=== PATIENT | female | born 1940 | race Two or more races ===

== ENCOUNTER 2020-04-26 16:36 | Inpatient (IN) | payer MEDICARE, OTHER ==
[~2020-04-26] VITALS: Ht 147.3 cm; Wt 42.3 kg
[~2020-04-26 16:36] MED LIST: RISP0.5T20 PO; VENL75CA62 PO
[2020-04-26] MEDS ORDERED: ACETAMINOPHEN 650 MG/SUPP.RECT RC ONE ×2 (17:00→17:19)
[2020-04-26] MEDS ORDERED: AZTREONAM 2 G in IV NS 0.9% 100 ML IV ONE (17:00)
[2020-04-26] MEDS ORDERED: VANCOMYCIN 1 GM in IV D5W 250 ML IV ONE (17:00)
[2020-04-26] MEDS ORDERED: NA P133E RC (17:14)
[2020-04-26] MEDS ORDERED: ACET325T53 PO (17:14)
[2020-04-26] MEDS ORDERED: MULT-447 PO (17:14)
[2020-04-26] MEDS ORDERED: BACL10TA PO (17:14)
[2020-04-26] MEDS ORDERED: SELE200T20 PO (17:14)
[2020-04-26] MEDS ORDERED: ESCI5TAB PO (17:14)
[2020-04-26] MEDS ORDERED: ERGO500014 PEG (17:14)
[2020-04-26] MEDS ORDERED: SENN-18 PO (17:14)
[2020-04-26] MEDS ORDERED: DEXT1CAP3 PO (17:14)
[2020-04-26] MEDS ORDERED: MEMA10TA PO (17:14)
[2020-04-26] MEDS ORDERED: DOCU-141 PO (17:14)
[2020-04-26] MEDS ORDERED: HYDR-4384 PO (17:14)
[2020-04-26] MEDS ORDERED: MAGN400O6 PO (17:14)
[2020-04-26] MEDS ORDERED: BISA10SU61 RC (17:14)
[2020-04-26] MEDS ORDERED: AMIN887L PO (17:14)
--- NOTE | 2020-04-26 17:20 | NUR ---
SUNDAY FROM [facility] TO ER BED 5. AWAKE BUT CONFUSED. NON VERBAL. BROUGHT IN FOR DESTURATION REPORTED @ 80% DESPITE HAVING O2 @ 15LPM VIA NON REBREATHER MASK AND TACHYCARDIA REPORTED AT 151. UPON ARRIVAL, PT WAS NOTED WITH O2 SAT @ 88% ON RA. PLACED ON 2 LPM VIA NC SATTING @ 97%. PT IS ON [id number] WITH HR IN THE 140s. RECTAL TEMP NOTED @ 103.2 MD WAS AT THE BEDSIDE FOR EVAL. ORDERS RECEIVED NOTED AND CARRIED OUT. IV LINE ALREADY IN PLACED ON LFA 22F. IV LINE ESTABLISHED ON LFA W/ 20G, BLOOD DRAWN AND GIVEN TO PARALEGAL SUPERVISOR AT BEDSIDE.PT ON [id number]. EKG DONE. URINE COLLECTED VIA IN & OUT, WITH STRICT STERILE TECHNIQUE.
[2020-04-26 17:27] LABS: APPEARANCE,URINE Clear (CLEAR); BILIRUBIN,URINE SMALL (NEGATIVE); BLOOD, URINE Trace-intact Ery/uL (NEGATIVE); COLOR,URINE Yellow (YELLOW); KETONES,URINE Negative (NEGATIVE); LEUKOCYTE ESTERASE ,URINE Negative (NEGATIVE); NITRITE, URINE Negative (NEGATIVE); PH,URINE 5.5 (5.0-8.0); PROTEIN,URINE Trace mg/dl (NEGATIVE); UGLUCOSE Negative (NEGATIVE); UROBILINOGEN,URINE 0.2 EU/dL (0.2)
[2020-04-26 17:29] LABS: BASOPHILS # (AUTO) 0.1 /CMM (0.0-0.2); BASOPHILS % (AUTO) 0.5 % (0.0-2.0); HEMATOCRIT 48 % (33-45); HEMOGLOBIN 15.4 g/dL (11.5-14.8); LYMPHOCYTES # (AUTO) 0.9 /CMM (0.8-4.8); LYMPHOCYTES % (AUTO) 8.5 % (20.0-44.0); MEAN CORPUSCULAR HGB CONC 32 g/dl (31.0-36.0); MEAN CORPUSCULAR VOLUME 93 fL (82-100); MONOCYTES # (AUTO) 0.7 /CMM (0.1-1.30); MONOCYTES % (AUTO) 6.6 % (2.0-12.0); NEUTROPHILS # (AUTO) 9.4 /CMM (1.8-8.9); NEUTROPHILS % (AUTO) 84.4 % (43.0-81.0); PLATELET COUNT (AUTO) 173 /CMM (150-450); RED BLOOD CELL COUNT(AUTO) 5.14 MIL/uL (4.0-5.2); WHITE BLOOD COUNT (AUTO) 11.2 K/uL (4.3-11.0)
--- NOTE | 2020-04-26 17:33 | NUR ---
MOVE SHEET SUBMITTED AND CALLED FOR TELE BED.
[2020-04-26 17:37] LABS: BACTERIA,URINE Rare /HPF (None Seen); SQUAMOUS EPITHELIAL CELL,UR Few /HPF (None Seen); WBC,URINE NONE SEEN /HPF (0-3)
[2020-04-26 17:55] LABS: ALANINE AMINOTRANSFERASE 75 U/L (12-78); ALBUMIN 2.7 g/dL (3.4-5.0); ALKALINE PHOSPHATASE 110 U/L (46-116); ASPARTATE AMINOTRANSFERASE 58 U/L (15-37); B-TYPE NATRIURETIC PEPTIDE 747 PG/ML (0-125); BILIRUBIN,TOTAL 0.5 mg/dL (0.2-1.0); CALCIUM, SERUM 8.2 mg/dL (8.5-10.1); CARBON DIOXIDE 26 mmol/L (21-32); CHLORIDE 120 mmol/L (98-107); CREATININE 1.3 mg/dL (0.6-1.3); GLUCOSE 158 mg/dL (74-106); POTASSIUM 3.5 mmol/L (3.5-5.1); TOTAL PROTEIN, SERUM 7.7 g/dL (6.4-8.2); UREA NITROGEN, BLOOD 57 mg/dL (7-18)
[2020-04-26] MEDS ORDERED: VANCOMYCIN 1 GM VIAL ONE (17:55)
[2020-04-26 17:57] LABS: SODIUM SERUM 158 mmol/L (136-145)
[2020-04-26] MEDS ORDERED: IV NS 0.9% 500 ML BAG IV ONE ×2 (18:00→21:30)
[2020-04-26] MEDS ORDERED: IV NS 0.9% 1,000 ML IV PRN (18:05)
[2020-04-26 18:08] LABS: D-DIMER 32.05 mg/L(FEU (0.17-0.50)
[2020-04-26 18:13] LABS: CREATINE KINASE, TOTAL 74 U/L (26-192); FERRITIN 282 ng/mL (8-388)
[2020-04-26 18:18] LABS: C-REACTIVE PROTEIN 3.7 mg/dL (0.0-0.9)
[2020-04-26] MEDS ORDERED: MORPHINE SULFATE INJ 2 MG/ML DISP.SYRIN IV PRN (18:30)
[2020-04-26] MEDS ORDERED: ACETAMINOPHEN 650 MG/SUPP.RECT RC PRN (18:30)
[2020-04-26] MEDS ORDERED: Z GUARD REMEDY 2 OZ OINT TP PRN (18:30)
[2020-04-26] MEDS ORDERED: ONDANSETRON HCL/PF 4 MG/2 ML VIAL IVP PRN (18:30)
[2020-04-26] MEDS ORDERED: ENOXAPARIN SODIUM 40 MG/0.4 ML DISP.SYRIN SQ ONE (18:30)
[2020-04-26 19:05] LABS: C-REACTIVE PROTEIN 3.7 mg/dL (0.0-0.9)
[2020-04-26] MEDS ORDERED: IOHEXOL-350 100 ML VIAL IV ONE (19:49)
[2020-04-26] MEDS ORDERED: IV NS 0.9% 250 ML IV ONE (19:50)
--- NOTE | 2020-04-26 20:46 | NUR ---
BACK FROM CT
--- NOTE | 2020-04-26 20:55 | NUR ---
PT NOTED WITH BP 87/62. MD MADE AWARE. ORDER GIVEN TO GIVE NS 1L BOLUS X 1. NOTED AND CARRIED OUT
--- NOTE | 2020-04-26 21:01 | NUR ---
REPORT GIVEN TO VIVEK ARELLANO FOR JOSE ALFREDO
[2020-04-26 21:07] LABS: BILIRUBIN,DIRECT 0.1 mg/dL (0.0-0.2)
--- NOTE | 2020-04-26 21:25 | NUR ---
PT TRANSPORTED TO UNIT ON GURNEY WITH EMT AND RN AT BEDSIDE W/ ACLS PROTOCOL. NAD NOTED DURING TRANSPORT.
[2020-04-26 21:30] VITALS: BP 145/64
[2020-04-26] MEDS ORDERED: NOREPINEPHRINE 8 MG in IV NS 0.9% 250 ML IV PRN (21:30)
[2020-04-26 21:31] VITALS: BP 145/64
--- NOTE | 2020-04-26 21:40 | NUR ---
MARKET RESEARCH MANAGER NOTE ADMITTED 79 YEARS OLD FEMALE PT FROM ER WITH THE DX OF SEPSIS WITH SEPTIC SHOCK SECONDRY TO PNA, ACUTE RENAL FAILURE BY NEGRA ONTIVEROS. PT IS NON VERBAL, ONLY MUMBELS AT THIS TIME. PT HAS LT HIP FX. NOTED PT SHOW SIGNS OF PAIN WHEN MOVE IN BED. ON TELE ST 101. SKIN ASSESSMENT DONE PICTURE TAKEN AND PLACE THEM IN THE CHART. PT IS WITH PRODUCTIVE COUGH. INCONTINENCE CARE GIVEN. NS INFUSING AT 100 ML/HR NO S/S OF INFILTRATION NOTED. VSS. NO FEVER NOTED AT THIS TIME. REMAIN IN ISOLATION FOR COVID R/O. ISOLATION PRECAUTIONS TAKEN. SIDE RAILS UP X 2 AND CALL LIGHT WITHIN REACH. CONTINUE TO MONITOR HER.
[2020-04-26 21:45] VITALS: BP 88/70
[2020-04-26 22:00] VITALS: BP 89/67
[2020-04-26 22:15] VITALS: BP 98/63
[2020-04-26 22:30] VITALS: BP 99/68
--- NOTE | 2020-04-26 22:30 | NUR ---
DRILL PUNCH OPERATOR NOTE HAND CANDY MOLDER KE INFORMED THAT PT HAS NA 158 AND PT ON NS @100 ML/HR, PER HAND CANDY MOLDER CONTINUE THE IVF FOR TONIGHT RECHECK BMP IN AM.
[2020-04-26] MEDS: CEFEPIME 1 GM in IV D5W 50 ML IV SCH (22:42)
[2020-04-27] VITALS (19 sets, daily range): BP systolic 91–125; BP diastolic 57–83
[2020-04-27 00:30] LABS: CALCIUM, SERUM 7.5 mg/dL (8.5-10.1); CARBON DIOXIDE 24 mmol/L (21-32); CHLORIDE 122 mmol/L (98-107); CREATININE 0.9 mg/dL (0.6-1.3); GLUCOSE 141 mg/dL (74-106); UREA NITROGEN, BLOOD 41 mg/dL (7-18)
[2020-04-27] MEDS ORDERED: BISACODYL SUPP (10 MG) 10 MG/SUPP.RECT SUPP.RECT RC PRN (00:30)
[2020-04-27] MEDS ORDERED: BACLOFEN (10 MG) 10 MG TABLET PO PRN (00:30)
[2020-04-27 00:44] LABS: SODIUM SERUM 156 mmol/L (136-145)
--- NOTE | 2020-04-27 02:42 | NUR ---
TABULAR TYPIST NOTE MEDICAL LEAD [facility] INFORMED PT K LEVEL DROPPED TO 3.0, MEDICAL LEAD GAVE NEW ORDER, ORDER NOTED AND CARRIED OUT.
[2020-04-27] MEDS ORDERED: POTASSIUM CHLORIDE 10 MEQ/50 ML PREMIXED IVPB FOR PERIPHERAL LINE IV ONE (03:00)
--- NOTE | 2020-04-27 04:11 | NUR ---
ORIGINATION SPECIALIST NOTE NURSING SUPERVISOR RUBBER COVERING INFORMED NO IV NS wITH 20 MEQ IS AVAILABLE AT THIS TIME. BUT IN DAY SHIFT PHARMACY WILL PROVIDE. START 10 MEQ KCL BAG IVPB ORDERED.
[2020-04-27 04:55] LABS: BASOPHILS % (AUTO) 0.3 % (0.0-2.0); EOSINOPHILS % (AUTO) 0.2 % (0.0-6.0); HEMATOCRIT 39 % (33-45); HEMOGLOBIN 12.7 g/dL (11.5-14.8); LYMPHOCYTES % (AUTO) 9.5 % (20.0-44.0); MEAN CORPUSCULAR HGB CONC 32 g/dl (31.0-36.0); MEAN CORPUSCULAR VOLUME 94 fL (82-100); MONOCYTES # (AUTO) 0.6 /CMM (0.1-1.30); MONOCYTES % (AUTO) 5.7 % (2.0-12.0); NEUTROPHILS # (AUTO) 8.6 /CMM (1.8-8.9); NEUTROPHILS % (AUTO) 84.3 % (43.0-81.0); PLATELET COUNT (AUTO) 125 /CMM (150-450); RED BLOOD CELL COUNT(AUTO) 4.16 MIL/uL (4.0-5.2); WHITE BLOOD COUNT (AUTO) 10.2 K/uL (4.3-11.0)
--- NOTE | 2020-04-27 05:26 | NUR ---
HOME OFFICE CLAIM SPECIALIST NOTE HUNG SECOND BAG OF 10 MEQ KCL AT 50 ML/HR PT IN NO DISTRESS OR DISCOMFORT NOTED.
[2020-04-27 05:33] LABS: THYROID STIMULATING HORMONE 0.125 uIU/mL (0.358-3.74)
--- NOTE | 2020-04-27 06:58 | NUR ---
ADOLESCENT COORDINATOR NOTE PT IN BED LETHARGIC. AROUSABLE TO MILD PAINFUL STIMULATION ON TELE SR 93. 2 BAG OF 10 MEQ KCL INFUSED. NO S/S INFILTRATION NOTED. WAITING OF NS WITH 20 MEQ IL BAG FROM PHARMACY. INFORMED DAY SHIFT TO FOLLOW UP. SIDE RAILS UP X 2 AND CALL LIGHT WITHIN REACH. ENDORSE TO DAY SHIFT NURSE FOR CONTINUE TO CARE.
--- NOTE | 2020-04-27 07:15 | NUR ---
HANDBAG DESIGNER OPENING NOTE Received patient asleep in bed. Appears calm and relaxed no signs of distress. On room air tolerating well o2 sat 99%. Patient is AO X1 tries to mumbles words. Tele monitor reading ST 100-105. Hendricks catheter in place draining cloudy yellow urine by gravity. Has LFA #22 flushes well and R Wrist #20 flushes well. Patient is NPO pending swallow eval. Safety measures reinforced. HOB elevated. Call light within reach. Bed locked and on lowest position. Will cont to monitor.
--- NOTE | 2020-04-27 07:36 | NUR ---
WOUND CARE CONSULT: REVIEWED CHART, NURSING DOCUMENTATION AND PHOTO WHICH INDICATES SACRAL INTACT DEEP TISSUE INJURY, PRESENT ON ADMISSION. PT IS VERY THIN. RECOMMENDATIONS MADE FOR SKIN PROTECTION. DISCUSSED WITH NURSING STAFF. PT IS ON FARHAT ISOFLEX LOW AIRLOSS BED. MD IN AGREEMENT WITH PLAN OF CARE. CURRENT KASIE SCORE IS 14.
[2020-04-27] MEDS: CEFEPIME 1 GM in IV D5W 50 ML IV SCH ×2 (08:49→20:33)
[2020-04-27] MEDS: Potassium Chloride 20 MEQ in IV NS 0.9% 1,000 ML IV PRN ×2 (08:52→18:59)
[2020-04-27] MEDS ORDERED: DEXTROMETHORPHAN HBR PO SCH (09:00)
[2020-04-27] MEDS ORDERED: QUINIDINE PO SCH (09:00)
[2020-04-27] MEDS ORDERED: PANTOPRAZOLE 40 MG VIAL IV SCH (09:00)
[2020-04-27] MEDS ORDERED: ENOXAPARIN SODIUM 40 MG/0.4 ML DISP.SYRIN SQ SCH (09:00)
[2020-04-27] MEDS: PROSOURCE / PROSTAT (PYXIS) 30 ML UDC PO SCH (09:00)
[2020-04-27] MEDS: DOCUSATE SODIUM 100 MG CAPSULE PO SCH (10:16)
[2020-04-27] MEDS: MULTIVIT W/MINERALS 1 TAB TABLET PO SCH (10:16)
[2020-04-27] MEDS: MEMANTINE HCL 5 MG TABLET PO SCH ×2 (10:16→16:44)
[2020-04-27] MEDS: VENLAFAXINE XR 75 MG CAP.SR.24H PO SCH (10:16)
[2020-04-27] MEDS: ESCITALOPRAM OXALATE (10 MG) 10 MG TABLET PO SCH (10:17)
--- NOTE | 2020-04-27 11:00 | NUR ---
SWALLOW EVAL AT BEDSIDE. INFORMED PATIENT WAS GIVEN MEDS WITH PUDDING AND TOLERATED WELL. PATIENT WILL BE ON PUREE DIET WITH NECTAR THICK LIQUID. WITH PRECAUTIONS FOR FEEDING 1/2 SPOON PER GIVING.
[2020-04-27] MEDS ORDERED: VANCOMYCIN 0.75 GM in IV D5W 250 ML IV SCH (12:00)
[2020-04-27 13:00] LABS: ALBUMIN 2.2 g/dL (3.4-5.0); BILIRUBIN,DIRECT 0.1 mg/dL (0.0-0.2); BILIRUBIN,TOTAL 0.4 mg/dL (0.2-1.0); CALCIUM, SERUM 7.9 mg/dL (8.5-10.1); CREATININE 0.7 mg/dL (0.6-1.3); MAGNESIUM 2.6 mg/dL (1.8-2.4); PHOSPHORUS 2.8 mg/dL (2.5-4.9); POTASSIUM 3.3 mmol/L (3.5-5.1); TOTAL PROTEIN, SERUM 6.1 g/dL (6.4-8.2)
--- NOTE | 2020-04-27 14:22 | NUR ---
[facility] and spoke with Last Model Maker Yenny . Per QUOC Ramon primary contact is brenna Leija (cell) (home). Per QUOC Ramon she is not aware of reasoning why patient was transferred to [facility]. Per QUOC Ramon primary SW in [place]. Per Yenny, she can transfer me to nursing staff to give a hogan report. Per nursing staff, patient was transferred because patient was Tachycardic. Per nursing staff, it had been overnight, and it is first day is unaware of what is going on. Nursing staff did not provide name and when asked refused to provide one to this SW. Plan: This SW to contact brenna Leija (cell) (home)
--- NOTE | 2020-04-27 15:53 | NUR ---
This SW attempted to speak with daughter Liss (cell) could not leave message on cellphone. This SW attempted this number instead (home). SW left a voicemail
--- NOTE | 2020-04-27 16:03 | NUR ---
Liss patient's daughter contacted this SW (home). Per Liss, patient has been at [facility] for 3/4 years. Per daughter, patient had a fall in November and admitted at [facility]. Per daughter, patient's diagnosis was dehydration at the time. Per daughter, she is concerned that [place] may not be providing the same level of care as they were previously. [facility] not have a broken hip that it may have happened during transportation. This SW to consult with Milagros Dennis, PROJECT GEOLOGIST, DSW, BCCristian regarding next steps. Possible APS or Shefali report. Addendum: 04/27/20 at 1608 by JOSE LUIS KUMARI Daughter would like guidance on a new placement for patient. SW to notify case management about this request.
--- NOTE | 2020-04-27 16:58 | NUR ---
4:15pm This SW spoke with Broadcast Correspondent VIVEK Shaw regarding daughters request of new possible placement. Valeria called [facility] Broadcast Correspondent to receive an update regarding this patient. [facility] informed Valeria that the patient is on the POP program. Broadcast Correspondent VIVEK Shaw requested [facility] to contact the patients daughter and provide information regarding this program.
--- NOTE | 2020-04-27 16:59 | NUR ---
4:20pm This SW consulted with Milagros Dennis LCSW, JOSÉ, MYKE. This SW to provide this information during interdisciplinary meeting tomorrow 04/28.
--- NOTE | 2020-04-27 18:13 | NUR ---
SEEN BY ORTHO, DR GAYLE. RECOMMENDS LEFT HIP BIPOLAR REPLACEMENT WHEN RECOVERED OR MEDICALLY STABLE ENOUGH TO HAVE ANESTHESIA.
--- NOTE | 2020-04-27 18:37 | NUR ---
PT VS WNL. NC ON 2L/MIN PRESCRIBED. TOLERATING WELL. IVS PATENT. FREE OF INFILTRATION. DRESSINGS DRY AND INTACT. DURBIN CATHETER INTACT AND DRAINING DARK CLOUDY URINE. TURNED AND REPOSITIONED Q2H. HOB ELEVATED. ALL MEDS GIVEN ORDERED. PT ASSISTED W FEEDING ORDERED WITH ASPIRATION PRECAUTIONS. ALL SAFETY PRECAUTIONS PER HOSPITAL POLICY IMPLEMENTED. WILL ENDORSE PLAN OF CARE TO PM NURSE.
--- NOTE | 2020-04-27 19:15 | NUR ---
RN OPENING NOTES RECEIVED PT IN BED IN SEMI FOLWER'S POSITION. NON VERBAL BUT RESPONSIVE TO PAINFUL STIMULI. PT IS ON 2L OF O2 VIA NC AND WITH O2 SATURATION OF 98%. RESPIRATIONS EVEN AND UNLABORED. NO INDICATIONS OF PAIN OR DISCOMFORT. DURBIN CATHETER PATENT AND IN PLACE DRAINING CLEAR YELLOW URINE. SR ON THE BEDSIDE MONITOR. VITAL SIGNS WNL. ASPIRATION PRECAUTIONS IN [place], WITH L HAND # 20 G IV PATENT AND FLUSHING WELL. WITH L FOREARM IV WITH IVF RUNNING ORDERED WITHOUT COMPLICATIONS NOTED AT BOTH IV SITES. SAFETY MEASURES IN PLACE, WILL MONITOR PATIENT.
[2020-04-27] MEDS: SENNOSIDES 8.6 MG TABLET PO SCH (21:01)
[2020-04-27] MEDS: VANCOMYCIN 0.75 GM in IV D5W 250 ML IV SCH (23:03)
[2020-04-28] VITALS (32 sets, daily range): BP systolic 91–152; BP diastolic 51–73
--- NOTE | 2020-04-28 | NUR ---
RN NOTES BED BATH AND AM CARE COMPLETED. PT TOLERATED WELL. WOUND CARE COMPLETED. O2 SAT SHOWS 89%. CHANGED PULSE OX SENSOR PROBE WHICH NOW SHOWS O2 SAT: 98%. VITAL SIGNS STABLE. WILL CONTINUE TO MONITOR.
[2020-04-28] MEDS: Potassium Chloride 20 MEQ in IV NS 0.9% 1,000 ML IV PRN (04:45)
[2020-04-28 05:02] LABS: CALCIUM, SERUM 7.8 mg/dL (8.5-10.1); CREATININE 0.6 mg/dL (0.6-1.3); POTASSIUM 3.8 mmol/L (3.5-5.1)
--- NOTE | 2020-04-28 06:52 | NUR ---
RN CLOSING NOTES NO ACUTE CHANGES OBSERVED OVERNIGHT. PT IS AWAKE IN BED IN SEMI MOREAU'S POSITION. RESPONSIVE TO VERBAL AND TACTILE STIMULI. MAKES INCOMPREHENSIBLE SOUNDS. ON 2L OF O2 VIA NC. RESPIRATIONS EVEN AND UNLABORED. NO INDICATIONS OF PAIN OR DISCOMFORT. DURBIN CATHETER PATENT AND IN PLACE DRAINING URINE. SR ON THE BEDSIDE MONITOR. PATIENT KEPT CLEAN AND DRY. ALL DUE MEDICATIONS ADMINISTERED. ALL NEEDS MET AND ATTENDED TO, LEFT HAND IV AND RIGHT HAND IV BOTH PATENT WITHOUT COMPLICATIONS NOTED AT SITES. IVF RUNNING ORDERED. SAFETY MEASURES IN PLACE, WILL ENDORSE TO MORNING RN FOR CONTINUATION OF CARE.
[2020-04-28 07:19] LABS: BASOPHILS % (AUTO) 0.3 % (0.0-2.0); EOSINOPHILS % (AUTO) 0.7 % (0.0-6.0); HEMATOCRIT 33 % (33-45); HEMOGLOBIN 10.6 g/dL (11.5-14.8); LYMPHOCYTES # (AUTO) 0.8 /CMM (0.8-4.8); LYMPHOCYTES % (AUTO) 9.4 % (20.0-44.0); MEAN CORPUSCULAR HGB CONC 32 g/dl (31.0-36.0); MEAN CORPUSCULAR VOLUME 95 fL (82-100); MONOCYTES # (AUTO) 0.4 /CMM (0.1-1.30); MONOCYTES % (AUTO) 4.4 % (2.0-12.0); NEUTROPHILS # (AUTO) 7.5 /CMM (1.8-8.9); NEUTROPHILS % (AUTO) 85.2 % (43.0-81.0); PLATELET COUNT (AUTO) 125 /CMM (150-450); WHITE BLOOD COUNT (AUTO) 8.8 K/uL (4.3-11.0)
--- NOTE | 2020-04-28 07:30 | NUR ---
RN/ICU RECEIVED PATIENT IN BED. NO ACUTE DISTRESS NOTED. PATIENT OPENS EYES, BUT NONVERBAL. PATIENT ON 2L OXYGEN VIA NASAL CANULA, SATURATING WELL AT 98-100%. PATIENT ON MUSIC ARRANGER, NORMAL SINUS RHYTHM NOTED. PATIENT LEFT HAND IV ACCESS INTACT, PATENT, FLUSHED WELL. PATIENT RIGHT HAND IV ACCESS INTACT, PATENT, FLUSHED WELL. PATIENT DURBIN CATHETER IN PLACE, INTACT, DRAINING TO GRAVITY. PATIENT SAFETY MEASURES MAINTAINED. CALL LIGHT WITHIN REACH. WILL CONTINUE TO MONITOR.
[2020-04-28] MEDS: ESCITALOPRAM OXALATE (10 MG) 10 MG TABLET PO SCH (08:21)
[2020-04-28] MEDS: MEMANTINE HCL 5 MG TABLET PO SCH ×2 (08:21→17:45)
[2020-04-28] MEDS: DOCUSATE SODIUM 100 MG CAPSULE PO SCH (08:21)
[2020-04-28] MEDS: VENLAFAXINE XR 75 MG CAP.SR.24H PO SCH (08:21)
[2020-04-28] MEDS: MULTIVIT W/MINERALS 1 TAB TABLET PO SCH (08:21)
[2020-04-28] MEDS: CEFEPIME 1 GM in IV D5W 50 ML IV SCH ×2 (08:21→21:09)
[2020-04-28] MEDS: ENOXAPARIN SODIUM 30 MG/0.3 ML DISP.SYRIN SQ SCH (08:22)
[2020-04-28] MEDS: PROSOURCE / PROSTAT (PYXIS) 30 ML UDC PO SCH (08:29)
[2020-04-28] MEDS: IV 1/2NS 1000 ML 1,000 ML IV PRN (11:18)
[2020-04-28] MEDS: VANCOMYCIN 0.75 GM in IV D5W 250 ML IV SCH (11:34)
--- NOTE | 2020-04-28 12:45 | NUR ---
REPORT GIVEN TO VIVEK CRABTREE FOR CONTINUITY OF CARE. PATIENT TRANSFERRED TO TELEMETRY 2ND FLOOR IN STABLE CONDITION. VITAL SIGNS WNL, NO ACUTE DISTRESS NOTED.
--- NOTE | 2020-04-28 13:00 | NUR ---
RN NOTE ARRIVED TO MS2 COVID UNIT Patient arrived on unit, non-verbal, opens eyes, responds to physical and verbal stimuli. Showing no signs of acute distress or SOB, saturating >95% on 2L NC. IV lines are clean and intact running 0/45% NS @ 75mls/hour per MD order. Hendricks catheter noted with cammy clear output. 1 BM this shift. Bed is in lowest position, side rails x3 in upright position, call light is within reach, fall safety and aspiration precautions enforced. PCR NEGATIVE. OK TO TRANSFER TO CLEAN UNIT BED 324-2. Will transfer and endorse to PM RN.
--- NOTE | 2020-04-28 19:45 | NUR ---
RN CLOSING NOTE Patient transferred to [facility]-2 clean unit. Bedside report given to LYNDA DOYLE. Patient remains stable throughout shift. All patient needs met, all due medications given, patient kept clean and dry throughout shift, fall safety and aspiration precautions enforced.
--- NOTE | 2020-04-28 19:55 | NUR ---
SOFTWARE TEST DEVELOPER NOTES RECEIVED [place] [facility] [place] GIVEN BY VIVEK MALCOLM. PATIENT IS NON-VERBAL, CALM RESTING COMFORTABLY, IN STABLE CONDITION, NO SIGNS OF ACUTE RESPIRATORY OR ACUTE DISTRESS NOTED. CONNECTED TO TELE MONITOR READS SINUS 80s.ON O2 AT 2LPM VIA NASAL CANNULA. IV ACCESS INTACT AND PATENT, DURBIN CATHETER INTACT DRAINING TO A YELLOW URINE OUT PUT. REPOSITIONED FOR COMFORT, SAFETY MEASURES IN PLACE, ASPIRATION PRECAUTION EMPHASIZED, ALL NEEDS ANTICIPATED, WILL CONTINUE TO MONITOR ACCORDINGLY.
[2020-04-28] MEDS: SENNOSIDES 8.6 MG TABLET PO SCH (21:37)
[2020-04-29] VITALS (7 sets, daily range): BP systolic 96–119; BP diastolic 60–67
[2020-04-29] MEDS: VANCOMYCIN 0.75 GM in IV D5W 250 ML IV SCH ×2 (01:28→11:14)
[2020-04-29] MEDS: IV 1/2NS 1000 ML 1,000 ML IV PRN (05:28)
--- NOTE | 2020-04-29 06:25 | NUR ---
CHEMISTRY LAB INSTRUCTOR NOTES ALL NEEDS ATTENDED AND MET ABLE TO REST AND SLEPT AT INTERVALS. KEPT CLEAN WARM DRY AND COMFORTABLE. REPOSITIONED FOR COMFORT. SAFETY MEASURES IN PLACE, ASPIRATION PRECAUTION EMPHASIZED. ALL NEEDS ANTICIPATED. TELE MONITOR READS SINUS 80s. DURBIN CATHETER INTACT AND PATENT DRAINING YELLOW URINE OUTPUT. IV ACCESS INTACT AND PATENT. WILL ENDORSE TO AM NURSE FOR CONTINUITY OF CARE.
[2020-04-29 07:14] LABS: BASOPHILS % (AUTO) 0.3 % (0.0-2.0); HEMATOCRIT 33 % (33-45); HEMOGLOBIN 10.9 g/dL (11.5-14.8); LYMPHOCYTES # (AUTO) 0.7 /CMM (0.8-4.8); LYMPHOCYTES % (AUTO) 8.7 % (20.0-44.0); MEAN CORPUSCULAR HGB CONC 33 g/dl (31.0-36.0); MEAN CORPUSCULAR VOLUME 93 fL (82-100); MONOCYTES # (AUTO) 0.3 /CMM (0.1-1.30); MONOCYTES % (AUTO) 4.1 % (2.0-12.0); NEUTROPHILS # (AUTO) 6.5 /CMM (1.8-8.9); NEUTROPHILS % (AUTO) 84.9 % (43.0-81.0); PLATELET COUNT (AUTO) 120 /CMM (150-450); RED BLOOD CELL COUNT(AUTO) 3.59 MIL/uL (4.0-5.2); WHITE BLOOD COUNT (AUTO) 7.7 K/uL (4.3-11.0)
--- NOTE | 2020-04-29 07:15 | NUR ---
MS RN NOTES RECEIVED PATIENT IN BED, ASLEEP. AROUSABLE TO VERBAL AND TACTILE STIMULI. PATIENT ALERT AND ORIENTED X1. HOB ELEVATED. ON O2 AT 2L/MIN VIA NC KAELA WELL. NO SOB OBSERVED. DENIES ANY C/O PAIN NOR DISCOMFORT AT THIS TIME. DURBIN CATHETER INTACT AND PATENT DRAINING URINE VIA BEDSIDE. BED IN LOWEST POSITION, LOCKED. BED ALARM ON. CALL LIGHT WITHIN REACH. FREQUENT VISUAL CHECK DONE.
[2020-04-29 07:47] LABS: CALCIUM, SERUM 7.6 mg/dL (8.5-10.1); CARBON DIOXIDE 22 mmol/L (21-32); CHLORIDE 114 mmol/L (98-107); CREATININE 0.5 mg/dL (0.6-1.3); GLUCOSE 88 mg/dL (74-106); MAGNESIUM 2.2 mg/dL (1.8-2.4); PHOSPHORUS 2.1 mg/dL (2.5-4.9); POTASSIUM 2.9 mmol/L (3.5-5.1); SODIUM SERUM 143 mmol/L (136-145); UREA NITROGEN, BLOOD 15 mg/dL (7-18)
--- NOTE | 2020-04-29 08:46 | NUR ---
MS RN NOTES PATIENT SEEN AND EXAMINED BY DR. STEPHENS.
[2020-04-29] MEDS: VENLAFAXINE XR 75 MG CAP.SR.24H PO SCH (08:53)
[2020-04-29] MEDS: CEFEPIME 1 GM in IV D5W 50 ML IV SCH ×2 (08:53→22:00)
[2020-04-29] MEDS: PROSOURCE / PROSTAT (PYXIS) 30 ML UDC PO SCH (08:54)
[2020-04-29] MEDS: DOCUSATE SODIUM 100 MG CAPSULE PO SCH (08:54)
[2020-04-29] MEDS: MULTIVIT W/MINERALS 1 TAB TABLET PO SCH (08:54)
[2020-04-29] MEDS: ESCITALOPRAM OXALATE (10 MG) 10 MG TABLET PO SCH (08:54)
[2020-04-29] MEDS: MEMANTINE HCL 5 MG TABLET PO SCH ×2 (08:54→16:38)
[2020-04-29] MEDS: ENOXAPARIN SODIUM 30 MG/0.3 ML DISP.SYRIN SQ SCH (08:56)
[2020-04-29] MEDS: POTASSIUM CHLORIDE 20 MEQ TAB.PRT.SR PO SCH ×3 (10:17→12:52)
[2020-04-29] MEDS ORDERED: K PHOS NEUTRAL 250 MG TABLET PO ONE (14:30)
--- NOTE | 2020-04-29 14:31 | NUR ---
MS RN NOTES CALLED DR. GAYLE'S OFFICE , PER FROYLAN, DR. GAYLE IS OUT DOING SURGERY AT [facility]. LEFT MESSAGE TO FROYLAN RE: ORTHO CONSULT FOR LEFT HIP FX. PER FROYLAN SHE WILL RELAY IT TO DR. GAYLE.
--- NOTE | 2020-04-29 14:50 | NUR ---
MS RN NOTES DR. GAYLE CALLED AND SAID HE HAD REVIEWED PATIENT'S X-RAY OF LEFT HIP FX. AT THIS TIME SINCE PATIENT IS BED BOUND AND NON-AMBULATORY HE WOULD REC TO LEAVE THE PATIENT AND NO SURGERY IS NEEDED. DR. GAYLE ASKED ABOUT PAIN, INFORMED DR. GAYLE, NO EVIDENCE OF FACIAL GRIMACING NOR S/S OF PAIN/DISCOMFORT OBSERVED AT THIS TIME WHEN RENDERING ADL's. INFORMED DR. GAYLE THAT DOCUMENTATION IS NEEDED DUE TO ORTHO CONSULT REQUEST. PER DR. GAYLE, HE WILL FIND A WAY TO MAKE HIS NOTES.
--- NOTE | 2020-04-29 19:20 | NUR ---
MS RN NOTES PATIENT RESTING COMFORTABLY IN BED. HOB ELEVATED. TITRATED O2, NOW ON ROOM AIR. NOTED SPO2 96-97% THROUGHOUT THE SHIFT WITHOUT S/S OF RESPIRATORY DISTRESS. DENIES ANY C/O PAIN NOR DISCOMFORT AT THIS TIME. DURBIN CATHETER INTACT AND PATENT DRAINING URINE VIA BEDSIDE. BED IN LOWEST POSITION, LOCKED. HANDLED PATIENT GENTLY DURING CARE AND ASSISTED MAINTENANCE AND ENGINEERING MANAGER WITH ADLs. BED ALARM ON. CALL LIGHT WITHIN REACH. IN NO APPARENT DISTRESS.
--- NOTE | 2020-04-29 19:50 | NUR ---
RN NOTES RECEIVED PATIENT CALM RESTING COMFORTABLY. NO SIGNS OF ACUTE CARDIAC OR RESPIRATORY DISTRESS NOTED. PERIPHERAL IV ACCESS INTACT AND PATENT. DURBIN CATHETER INTACT AND PATENT DRAINING TO A YELLOW URINE OUTPUT. SAFETY MEASURES INPLACE, ASPIRATION PRECAUTION EMPHASIZED. CALL LIGHT WITHIN EASY REACH, BED IN LOW LOCKED POSITION. ALL NEEDS ANTICIPATED. WILL CONTINUE TO MONITOR ACCORDINGLY.
[2020-04-29] MEDS: SENNOSIDES 8.6 MG TABLET PO SCH (22:00)
[2020-04-30] VITALS: BP 99/67
--- NOTE | 2020-04-30 01:10 | NUR ---
GROMMET MAN NOTES REPORT GIVEN TO VIVEK TRACY FOR CONTINUITY OF CARE. TELE MONITOR READS SINUS 70s. PATIENT IS RESTING COMFORTABLY. NO SIGNS OF ACUTE DISTRESS NOTED. PERIPHERAL IV ACCESS INTACT AND PATENT. DURBIN CATHETER INTACT DRAINING TO A YELLOW URINE OUTPUT. SAFETY MEASURES INPLACE, ASPIRATION PRECAUTION EMPHASIZED.
[2020-04-30 04:00] VITALS: BP 112/68
--- NOTE | 2020-04-30 06:09 | NUR ---
TELE/RN CLOSING NOTE Patient is asleep in bed, non-verbal, responds to stimuli. Rhonchi breath sounds noted, unlabored, symmetrical. HOB elevated. 2 LPM NC saturating at 96%. Tele monitor reading sinus rhythm in the 70's. Skin warm, pink, dry appropriate for ethnicity. Discoloration noted on sacrum. IV site land 20g, saline locked, patent and intact. Abdomen large, round, soft, non-tender. 2 bowel movements this shift, soft, brown, medium. Patient void via FC clear, yellow urine, 250 ml output. Bony prominences off loaded. Turn and reposition q2h. Bed in low position, wheels locked, side rails up x2, call light within reach. Will endorse to oncoming nurse.
[2020-04-30 06:50] LABS: CARBON DIOXIDE 22 mmol/L (21-32); CHLORIDE 112 mmol/L (98-107); CREATININE 0.5 mg/dL (0.6-1.3); GLUCOSE 99 mg/dL (74-106); PHOSPHORUS 2.5 mg/dL (2.5-4.9); POTASSIUM 3.5 mmol/L (3.5-5.1); SODIUM SERUM 143 mmol/L (136-145); UREA NITROGEN, BLOOD 14 mg/dL (7-18)
--- NOTE | 2020-04-30 07:40 | NUR ---
LAND COMMISSIONER NOTE PATIENT IN BED SLEEPING, RESTING COMFORTABLY. PATIENT IN NO ACUTE DISTRESS. NO SOB NOTED. PATIENT BREATHING IS EVEN AND UNLABORED. PATIENT ON CARDIAC MONITORING READING SINUS RHYTHM HR 94. PATIENT BED ALARM IS ON. SAFETY PRECAUTIONS IN PLACE. PATIENT BED IS LOCKED AND IN LOWEST POSITION. CALL LIGHT WITHIN REACH. WILL CONTINUE TO MONITOR.
[2020-04-30 08:00] VITALS: BP 126/100
[2020-04-30] MEDS: DOCUSATE SODIUM 100 MG CAPSULE PO SCH (08:09)
[2020-04-30] MEDS: MULTIVIT W/MINERALS 1 TAB TABLET PO SCH (08:09)
[2020-04-30] MEDS: CEFEPIME 1 GM in IV D5W 50 ML IV SCH ×2 (08:09→21:18)
[2020-04-30] MEDS: VENLAFAXINE XR 75 MG CAP.SR.24H PO SCH (08:09)
[2020-04-30] MEDS: ESCITALOPRAM OXALATE (10 MG) 10 MG TABLET PO SCH (08:10)
[2020-04-30] MEDS: MEMANTINE HCL 5 MG TABLET PO SCH ×2 (08:11→16:29)
[2020-04-30] MEDS: ENOXAPARIN SODIUM 30 MG/0.3 ML DISP.SYRIN SQ SCH (08:12)
[2020-04-30] MEDS: PROSOURCE / PROSTAT (PYXIS) 30 ML UDC PO SCH (09:39)
[2020-04-30 16:00] VITALS: BP 104/67
--- NOTE | 2020-04-30 18:43 | NUR ---
MS RN CLOSING NOTE PATIENT IN BED RESTING COMFORTABLY. PATIENT IN NO ACUTE DISTRESS. NO SOB NOTED. PATIENT BREATHING IS EVEN AND UNLABORED. PATIENT KEPT CLEAN, DRY, AND COMFORTABLE THROUGHOUT SHIFT. PATIENT TURNED AND REPOSITIONED Q2H. PATIENT BED ALARM IS ON. SAFETY PRECAUTIONS IN PLACE. PATIENT BED IS LOCKED AND IN LOWEST POSITION. CALL LIGHT WITHIN REACH. WILL ENDORSE CARE TO PM SHIFT FOR JOSE ALFREDO.
--- NOTE | 2020-04-30 19:30 | NUR ---
ms rn opening note received patient sleeping in bed. per report patient is nonverbal, opens eyes only. on oxygen 2l/min via nasal cannula. respirations are even and unlabored. no s/s sob noted. no s/s pain at this time. in no apparent distress. iv access in left hand #20 patent and saline locked. yaala catheter is present,. draining to gravity. bed i slow and locked, hob elevated in semi kamara,s side rails up x3. alek light within reach. will continue to monitor.
[2020-04-30 20:00] VITALS: BP 116/72
[2020-04-30] MEDS: SENNOSIDES 8.6 MG TABLET PO SCH (21:19)
--- NOTE | 2020-05-01 06:31 | NUR ---
ms rn closing note patient remains sleeping in bed. remains on oxygen 2l/min via nasal cannula. no resp distress. no s/s pain noted. iv access maintained in left hand #20 patent and saline locked. ayala catheter is maintained, draining to gravity, output 800ml, cammy. bed remains slow and locked, hob elevated in semi kamara, side rails up x3, extremities offloaded, handled with care d/t left hip fracture. call light within reach. will endorse to next shift.
--- NOTE | 2020-05-01 07:30 | NUR ---
RN OPENING NOTE Patient is resting in bed, A/O x2, showing no signs of acute distress or SOB, saturating 98%-100% on 2L NC. Iv line is clean and intact flushing well. HOB >40 degrees. Bed is in lowest position, side rails x3 in upright position, call light is within reach, fall safety and aspiration precautions enforced. Will continue with plan of care.
[2020-05-01 08:00] VITALS: BP 125/79
[2020-05-01] MEDS: VENLAFAXINE XR 75 MG CAP.SR.24H PO SCH (08:16)
[2020-05-01] MEDS: ESCITALOPRAM OXALATE (10 MG) 10 MG TABLET PO SCH (08:16)
[2020-05-01] MEDS: DOCUSATE SODIUM 100 MG CAPSULE PO SCH (08:16)
[2020-05-01] MEDS: MEMANTINE HCL 5 MG TABLET PO SCH ×2 (08:16→16:18)
[2020-05-01] MEDS: MULTIVIT W/MINERALS 1 TAB TABLET PO SCH (08:16)
[2020-05-01] MEDS: ENOXAPARIN SODIUM 30 MG/0.3 ML DISP.SYRIN SQ SCH (08:19)
[2020-05-01] MEDS: CEFEPIME 1 GM in IV D5W 50 ML IV SCH ×2 (08:20→21:18)
[2020-05-01 08:54] LABS: CALCIUM, SERUM 8.3 mg/dL (8.5-10.1); CARBON DIOXIDE 24 mmol/L (21-32); CHLORIDE 110 mmol/L (98-107); CREATININE 0.4 mg/dL (0.6-1.3); GLUCOSE 109 mg/dL (74-106); POTASSIUM 3.2 mmol/L (3.5-5.1); SODIUM SERUM 142 mmol/L (136-145); UREA NITROGEN, BLOOD 8 mg/dL (7-18)
--- NOTE | 2020-05-01 10:00 | NUR ---
RN NOTE o2 titration per MD--patient is saturating 100% on RA.
[2020-05-01] MEDS: PROSOURCE / PROSTAT (PYXIS) 30 ML UDC PO SCH (11:06)
[2020-05-01 17:48] VITALS: BP 130/75
--- NOTE | 2020-05-01 19:40 | NUR ---
RN CLOSING NOTE Patient is resting in bed, A/O x2, showing no signs of acute distress or SOB, saturating 98-100% on RA. IV line is clean and intact flushing well. HOB >40 degrees. All patient needs met, all due medications given, patient kept clean and dry throughout shift. Skin protection measures implemented. Bed is in lowest position, side rails x3 in upright position, call light is within reach, fall safety and aspiration precautions enforced. Will endorse to restaurant shift leader.
--- NOTE | 2020-05-01 19:45 | NUR ---
MS RN OPENING NOTES RECEIVED PATIENT IN BED, OPENS EYES AND MOANS. BREATHING REGULAR AND UNLABORED ON OXYGEN AT 2L/MIN VIA NASAL CANNULA. LEFT HAND G20 IV LINE INTACT AND FLUSHING WELL WITH NO BLEEDING OR S/S OF INFILTRATION NOTED. NO S/S OF PAIN/DISCOMFORT NOTED AT THIS TIME. BED LOW AND LOCKED ON SEMI FOWLERS POSITION. CALL LIGHT IN REACH. WILL CONTINUE TO MONITOR.
[2020-05-01 20:00] VITALS: BP 131/81
[2020-05-01] MEDS: SENNOSIDES 8.6 MG TABLET PO SCH (21:17)
--- NOTE | 2020-05-02 06:50 | NUR ---
MS RN CLOSING NOTES PATIENT IN BED, OPENS EYES, MOANS. AFEBRILE WITH NO S/S DISTRESS OBSERVED. LEFT HAND G20 IV LINE INTACT AND FLUSHING WELL. NO S/S OF PAIN/DISCOMFORT NOTED AT THIS TIME. BED LOW AND LOCKED ON SEMI FOWLERS POSITION. CALL LIGHT IN REACH. WILL ENDORSE TO MORNING SHIFT FOR JOSE ALFREDO.
[2020-05-02 08:00] VITALS: BP 101/65
--- NOTE | 2020-05-02 08:00 | NUR ---
m/s motor pool driver: initial assessment received pt in bed awake, non-verbal, unable to comprehend. no s/s of distress noted. turned and repositioned. kept comfortable. will continue to monitor.
[2020-05-02] MEDS: ENOXAPARIN SODIUM 30 MG/0.3 ML DISP.SYRIN SQ SCH (08:28)
[2020-05-02] MEDS: MULTIVIT W/MINERALS 1 TAB TABLET PO SCH (08:28)
[2020-05-02] MEDS: ESCITALOPRAM OXALATE (10 MG) 10 MG TABLET PO SCH (08:29)
[2020-05-02] MEDS: DOCUSATE SODIUM 100 MG CAPSULE PO SCH (08:29)
[2020-05-02] MEDS: MEMANTINE HCL 5 MG TABLET PO SCH ×2 (08:29→17:26)
[2020-05-02] MEDS: VENLAFAXINE XR 75 MG CAP.SR.24H PO SCH (08:29)
[2020-05-02] MEDS: PROSOURCE / PROSTAT (PYXIS) 30 ML UDC PO SCH (08:31)
[2020-05-02 08:43] LABS: CALCIUM, SERUM 8.2 mg/dL (8.5-10.1); CARBON DIOXIDE 25 mmol/L (21-32); CHLORIDE 106 mmol/L (98-107); CREATININE 0.5 mg/dL (0.6-1.3); GLUCOSE 106 mg/dL (74-106); POTASSIUM 3.2 mmol/L (3.5-5.1); SODIUM SERUM 139 mmol/L (136-145); UREA NITROGEN, BLOOD 7 mg/dL (7-18)
[2020-05-02] MEDS: CEFEPIME 1 GM in IV D5W 50 ML IV SCH ×2 (08:43→20:20)
--- NOTE | 2020-05-02 10:30 | NUR ---
m/s web site developer: notes dr. cruz (ortho) called and ask if pt is ambulatory, informed md that pt is a bedbound. dr. cruz will call dr. cortes and will let us know his plan re: left hip fx. cn made aware.
--- NOTE | 2020-05-02 11:50 | NUR ---
m/s presbyterian clergy: notes dr. cortes called and ask if pt has been npo. informed md that pt last ate her breakfast at 8 in the morning, stated, "let me call you back, i need to call dr. cruz again."
--- NOTE | 2020-05-02 12:15 | NUR ---
m/s insurance policy issue clerk: notes dr. cortes called again with order to keep pt npo after midnight, start d5 1/2 ns at 75ml/hr after midnight and consent for orif left hip. orders read back and carried out and acknowledged. left message to daughter via answering machine. cn made aware.
--- NOTE | 2020-05-02 13:15 | NUR ---
m/s camera assembler: notes place a call to bentley (daughter) and spoke to her over the phone and consented for left hip orif, anesthesia, and blood products consents with another nurse as witness. daughter verbalized understanding.
--- NOTE | 2020-05-02 14:00 | NUR ---
m/s instructor of spanish: notes pm care rendered. turned and repositioned. kept comfortable. no distress noted. will continue to monitor.
[2020-05-02 16:00] VITALS: BP 121/55
--- NOTE | 2020-05-02 16:00 | NUR ---
m/s bucket pusher: notes pm care rendered. turned and repositioned. kept comfortable. no distress noted. will continue to monitor.
--- NOTE | 2020-05-02 18:10 | NUR ---
m/s polymerization kettle operator: notes dr. cortes notified re: potassium level=3.2 with order to give potassium chloride 40meq powder. order read back and carried out and acknowledged.
--- NOTE | 2020-05-02 18:15 | NUR ---
m/s director food and beverage: notes called pharmacist to verify potassium chloride packet order.
[2020-05-02] MEDS ORDERED: POTASSIUM CHLORIDE 20 MEQ POWDER PACKET PO ONE (18:30)
--- NOTE | 2020-05-02 19:00 | NUR ---
m/s colorist: notes report given to jason (rn) for continuity of care.
--- NOTE | 2020-05-02 19:45 | NUR ---
MS RN OPENING NOTES RECEIVED PATIENT IN BED, OPENS EYES AND MOANS. BREATHING REGULAR AND UNLABORED ON ROOM AIR. LEFT HAND G20 IV LINE INTACT AND FLUSHING WELL WITH NO BLEEDING OR S/S OF INFILTRATION NOTED. NO S/S OF PAIN/DISCOMFORT NOTED AT THIS TIME. BED LOW AND LOCKED ON SEMI FOWLERS POSITION. CALL LIGHT IN REACH. WILL CONTINUE TO MONITOR.
[2020-05-02 20:00] VITALS: BP 128/76
[2020-05-02] MEDS: SENNOSIDES 8.6 MG TABLET PO SCH (21:47)
[2020-05-03] MEDS ORDERED: IV D5/0.45 NACL 1,000 ML IV ONE
--- NOTE | 2020-05-03 04:55 | NUR ---
MS RN NOTES LEFT HAND IV LINE LEAKING, REMOVED. IV LINE REINSERTED ON RIGHT FOREARM G20 INFUSING WELL WITH GOOD BLOOD BACK FLOW. WILL CONTINUE TO MONITOR.
--- NOTE | 2020-05-03 05:15 | NUR ---
MS RN NOTES NOTED WITH FACIAL GRIMACING AND CRYING, GRASPING HER LEFT HIP. MORPHINE 2MG GIVEN VIA IVP. NON-PHARMACOLOGICAL INTERVENTIONS PROVIDED. VITAL SIGNS WNL. WILL CONTINUE TO MONITOR.
--- NOTE | 2020-05-03 06:45 | NUR ---
MS RN CLOSING NOTES PATIENT IN BED, OPENS EYES, MOANS. AFEBRILE WITH NO S/S DISTRESS OBSERVED. RIGHT FOREARM G20 IV LINE INTACT AND INFUSING WELL. NO S/S OF PAIN/DISCOMFORT NOTED AT THIS TIME. MAINTAINED NOTHING BY MOUTH. BED LOW AND LOCKED ON SEMI FOWLERS POSITION. CALL LIGHT IN REACH. WILL ENDORSE TO MORNING SHIFT FOR JOSE ALFREDO.
[2020-05-03 07:34] LABS: BASOPHILS % (AUTO) 0.2 % (0.0-2.0); EOSINOPHILS % (AUTO) 0.5 % (0.0-6.0); HEMATOCRIT 39 % (33-45); HEMOGLOBIN 12.8 g/dL (11.5-14.8); LYMPHOCYTES # (AUTO) 0.7 /CMM (0.8-4.8); MEAN CORPUSCULAR HGB CONC 33 g/dl (31.0-36.0); MEAN CORPUSCULAR VOLUME 92 fL (82-100); MONOCYTES # (AUTO) 0.6 /CMM (0.1-1.30); MONOCYTES % (AUTO) 7.6 % (2.0-12.0); NEUTROPHILS # (AUTO) 6.4 /CMM (1.8-8.9); NEUTROPHILS % (AUTO) 82.7 % (43.0-81.0); PLATELET COUNT (AUTO) 270 /CMM (150-450); RED BLOOD CELL COUNT(AUTO) 4.24 MIL/uL (4.0-5.2); WHITE BLOOD COUNT (AUTO) 7.8 K/uL (4.3-11.0)
[2020-05-03 08:00] VITALS: BP_SYST 140; BP_SYST 160; BP_DIAS 82; BP_DIAS 86
--- NOTE | 2020-05-03 08:00 | NUR ---
RN OPENING NOTE Patient is resting in bed, A/O x0, nonverbal, able to open eyes, showing no signs of distress stable on RA. Hendricks catheter noted with clear yellow urine. IV line in the RFA#20g is clean and intact running d51/2@75mls/hour. Patient is NPO at this time for scheduled LEFT HIP ORIF at 1100. Consents are signed and placed in chart. Bed is in lowest position, side rails x3 in upright position, fall safety and aspiration precautions enforced. Will continue with plan of care.
[2020-05-03 08:06] LABS: CALCIUM, SERUM 8.4 mg/dL (8.5-10.1); CARBON DIOXIDE 25 mmol/L (21-32); CHLORIDE 105 mmol/L (98-107); CREATININE 0.5 mg/dL (0.6-1.3); GLUCOSE 136 mg/dL (74-106); POTASSIUM 3.6 mmol/L (3.5-5.1); SODIUM SERUM 138 mmol/L (136-145); UREA NITROGEN, BLOOD 13 mg/dL (7-18)
[2020-05-03] MEDS: CEFEPIME 1 GM in IV D5W 50 ML IV SCH (08:43)
[2020-05-03] MEDS: DOCUSATE SODIUM 100 MG CAPSULE PO SCH (08:44)
[2020-05-03] MEDS: PROSOURCE / PROSTAT (PYXIS) 30 ML UDC PO SCH (08:44)
[2020-05-03] MEDS: ESCITALOPRAM OXALATE (10 MG) 10 MG TABLET PO SCH (08:44)
[2020-05-03] MEDS: MEMANTINE HCL 5 MG TABLET PO SCH ×2 (08:44→16:22)
[2020-05-03] MEDS: VENLAFAXINE XR 75 MG CAP.SR.24H PO SCH (08:44)
[2020-05-03] MEDS: MULTIVIT W/MINERALS 1 TAB TABLET PO SCH (08:44)
[2020-05-03] MEDS: ENOXAPARIN SODIUM 30 MG/0.3 ML DISP.SYRIN SQ SCH (08:45)
--- NOTE | 2020-05-03 08:45 | NUR ---
RN NOTE PO MEDS AND LOVENOX HELD FOR SURGERY SCHEDULED AT 1100.
--- NOTE | 2020-05-03 10:41 | NUR ---
RN NOTE Patient left for surgery at this time.
[2020-05-03] MEDS ORDERED: ROCURONIUM BROMIDE 50 MG/5 ML ONE (11:02)
[2020-05-03] MEDS ORDERED: CLINDAMYCIN 900 MG/6 ML VIAL ONE (11:02)
[2020-05-03] MEDS ORDERED: FENTANYL PF 100MCG/2ML AMPUL ONE (11:02)
[2020-05-03] MEDS ORDERED: BUPIVACAINE 0.5 % PF 150 MG/30 ML VIAL ONE (11:03)
[2020-05-03] MEDS ORDERED: BACITRACIN 50000 UNITS/VIAL ONE (11:03)
[2020-05-03] MEDS ORDERED: VANCOMYCIN 1 GM VIAL ONE (12:13)
[2020-05-03] MEDS ORDERED: BUPIVACAINE 0.25% 75 MG/30 ML VIAL ONE (12:15)
--- NOTE | 2020-05-03 13:54 | NUR ---
RN NOTE Patient is back from surgery, opens eyes, responsive to touch and name, BP 102/71 HR 98 O2 98% on 2L NC T97.5. Wedge placed inbetween legs, ayala catheter in place. Post-op orders faxed to pharmacy. Bed is in lowest position, side rails x3 in upright position, call light is within reach, fall safety and aspiration precautions enforced. Will continue with plan of care.
[2020-05-03 14:01] VITALS: BP 102/71
[2020-05-03] MEDS ORDERED: HYDROCODONE/APAP 5/325MG TABLET PO PRN (15:00)
[2020-05-03 16:00] VITALS: BP 102/71
[2020-05-03] MEDS: Potassium Chloride 20 MEQ in IV D5/0.45 NACL 1,000 ML IV PRN (16:23)
[2020-05-03] MEDS: CLINDAMYCIN 600 MG in IV D5W 50 ML IV SCH ×2 (16:30→22:32)
[2020-05-03] MEDS: MORPHINE SULFATE INJ 2 MG/ML DISP.SYRIN IV PRN (16:41)
--- NOTE | 2020-05-03 18:29 | NUR ---
RN CLOSING NOTE Patient is resting in bed, A/O x0, nonverbal, able to open eyes, showing no signs of distress stable on RA. Hendricks catheter noted with clear yellow urine--300cc out. IV line in the RFA#20g is clean and intact running Kcl 20meq @75mls/hour. S/P LEFT HIP HEMIARTHROPLASTY today. Patient able to tolerate puree diet. All patient needs met, all due medications given, patient kept clean and dry throughout the shift. Bed is in lowest position, side rails x3 in upright position, fall safety and aspiration precautions enforced. Will endorse to night time babysitter.
[2020-05-03 20:00] VITALS: BP 105/75
--- NOTE | 2020-05-03 20:02 | NUR ---
MS/RN OPENING NOTE Patient is asleep in bed, non-verbal, responds to stimuli. Breathing even, unlabored, symmetrical on room air. HOB elevated. Skin warm, pink, dry appropriate for ethnicity. DTI noted on sacrum, mepilex dressing dry and intact. Wound dressing to left hip s/p left hip arthroplasty, minimal drainage noted. IV site RFA 20g, running KCl 20 mEq @ 75 ml/hr, no signs of infiltration. Abdomen round, soft, non-tender. Patient void via FC clear, yellow urine. Bony prominences off loaded. Turn and reposition q2h. Bed in low position, wheels locked, side rails up x2, call light within reach.
[2020-05-03] MEDS ORDERED: ANCEF 1 GM/50 ML D5W IV SCH ×2 (21:00)
[2020-05-03] MEDS: SENNOSIDES 8.6 MG TABLET PO SCH (21:00)
--- NOTE | 2020-05-04 06:24 | NUR ---
MS/RN CLOSING NOTE Patient is asleep in bed, non-verbal, responds to stimuli. Breathing even, unlabored, symmetrical on room air. HOB elevated. Skin warm, pink, dry appropriate for ethnicity. DTI noted on sacrum, mepilex dressing changed dry and intact. Wound dressing to left hip s/p left hip arthroplasty, minimal drainage noted. IV site RFA 20g, running KCl 20 mEq @ 75 ml/hr, no signs of infiltration. Patient void via FC clear, yellow urine. Bony prominences off loaded. Turn and repositioned. Bed in low position, wheels locked, side rails up x2, call light within reach.
--- NOTE | 2020-05-04 07:38 | NUR ---
VIVEK COFFEY NOTES PATIENT IS SLEEPING IN BED WITH NO SIGNS OF DISTRESS ON 2L OF NASAL CANNULA FOR COMFORT. IV R FA #20G INTACT RUNNING KCL 20 MEQ AT 75 ML/HR. NO SIGNS OF PAIN AT THIS MOMENT. DURBIN CATH INTACT. HOB ELEVATED FOR ASPIRATION PRECAUTION. SAFETY MEASURES ARE APPLIED, BED IS LOW AND LOCKED. SIDE RAILS UP X 2 FOR SAFETY. CALL LIGHT WITHIN REACH. WILL CONTINUE TO MONITOR.
[2020-05-04 08:00] VITALS: BP 101/70
[2020-05-04 08:00] LABS: CALCIUM, SERUM 8.3 mg/dL (8.5-10.1); CREATININE 0.6 mg/dL (0.6-1.3); POTASSIUM 4.1 mmol/L (3.5-5.1)
[2020-05-04] MEDS: VENLAFAXINE XR 75 MG CAP.SR.24H PO SCH (08:19)
[2020-05-04] MEDS: DOCUSATE SODIUM 100 MG CAPSULE PO SCH (08:19)
[2020-05-04] MEDS: MULTIVIT W/MINERALS 1 TAB TABLET PO SCH (08:20)
[2020-05-04] MEDS: ESCITALOPRAM OXALATE (10 MG) 10 MG TABLET PO SCH (08:20)
[2020-05-04] MEDS: MEMANTINE HCL 5 MG TABLET PO SCH ×2 (08:20→17:58)
[2020-05-04] MEDS: ENOXAPARIN SODIUM 30 MG/0.3 ML DISP.SYRIN SQ SCH (08:22)
[2020-05-04] MEDS: PROSOURCE / PROSTAT (PYXIS) 30 ML UDC PO SCH (08:39)
[2020-05-04] MEDS: Potassium Chloride 20 MEQ in IV D5/0.45 NACL 1,000 ML IV PRN (08:40)
[2020-05-04 16:00] VITALS: BP 105/55
[2020-05-04] MEDS: MORPHINE SULFATE INJ 2 MG/ML DISP.SYRIN IV PRN (18:34)
--- NOTE | 2020-05-04 18:43 | NUR ---
RN CLOSED NOTES PATIENT HAS EYES OPEN SLEEPING IN BED WITH NO SIGNS OF DISTRESS ON 2L OF NASAL CANNULA FOR COMFORT. IV R FA #20G INTACT RUNNING KCL 20 MEQ AT 75 ML/HR. NO SIGNS OF PAIN AT THIS MOMENT. DURBIN CATH INTACT. HOB ELEVATED FOR ASPIRATION PRECAUTION. PATIENT KEPT CLEAN AND DRY. ALL NEEDS, CARE, TREATMENT AND MEDICATIONS ADMINISTERED ANTICIPATED PER ORDER. SAFETY MEASURES ARE APPLIED, BED IS LOW AND LOCKED POSITION. SIDE RAILS UP X 2 FOR SAFETY. CALL LIGHT WITHIN REACH. 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
[2020-05-04 20:00] VITALS: BP 100/64
[2020-05-04] MEDS: SENNOSIDES 8.6 MG TABLET PO SCH (21:44)
[2020-05-04 22:01] VITALS: BP 100/64
--- NOTE | 2020-05-04 22:08 | NUR ---
MS/RN OPENING NOTE Patient is awake in bed, non-verbal, responds to stimuli. Breathing even, unlabored, symmetrical on room air. HOB elevated. DTI noted on sacrum, mepilex dressing dry and intact. Wound dressing to left hip s/p left hip arthroplasty, no drainage noted. IV site RFA 20g no signs of infiltration, patent and intact. Patient void via FC clear, yellow urine. Bony prominences off loaded. Turn and reposition q2h. Bed in low position, wheels locked, side rails up x2, call light within reach.
--- NOTE | 2020-05-05 07:21 | NUR ---
MS/RN CLOSING NOTE Patient is awake in bed, non-verbal, responds to stimuli. Breathing even, unlabored, symmetrical on room air. HOB elevated. DTI noted on sacrum, mepilex dressing changed, minimal drainage noted. Wound dressing to left hip s/p left hip arthroplasty, minimal drainage noted. IV site RFA 20g no signs of infiltration, patent and intact. Patient void via FC clear, yellow urine, 200 ml. Bony prominences off loaded. Turn and reposition q2h. Bed in low position, wheels locked, side rails up x2, call light within reach.
--- NOTE | 2020-05-05 07:39 | NUR ---
RN OPENING NOTE Patient is resting in bed, A/O x0, nonverbal, able to open eyes, showing no signs of distress stable on RA. Hendricks catheter noted with clear yellow urine. IV line in the RFA#20g is clean and intact flushing well. S/P LEFT HIP HEMIARTHROPLASTY 05/03/20. Bed is in lowest position, side rails x3 in upright position, fall safety and aspiration precautions enforced. Will continue with plan of care.
[2020-05-05 07:54] LABS: CALCIUM, SERUM 8.3 mg/dL (8.5-10.1); CARBON DIOXIDE 22 mmol/L (21-32); CHLORIDE 106 mmol/L (98-107); CREATININE 0.4 mg/dL (0.6-1.3); GLUCOSE 108 mg/dL (74-106); POTASSIUM 4.1 mmol/L (3.5-5.1); SODIUM SERUM 135 mmol/L (136-145); UREA NITROGEN, BLOOD 21 mg/dL (7-18)
[2020-05-05 08:00] VITALS: BP 98/63
[2020-05-05] MEDS: ESCITALOPRAM OXALATE (10 MG) 10 MG TABLET PO SCH (08:29)
[2020-05-05] MEDS: DOCUSATE SODIUM 100 MG CAPSULE PO SCH (08:29)
[2020-05-05] MEDS: MULTIVIT W/MINERALS 1 TAB TABLET PO SCH (08:29)
[2020-05-05] MEDS: MEMANTINE HCL 5 MG TABLET PO SCH (08:29)
[2020-05-05] MEDS: VENLAFAXINE XR 75 MG CAP.SR.24H PO SCH (08:29)
[2020-05-05] MEDS: ENOXAPARIN SODIUM 30 MG/0.3 ML DISP.SYRIN SQ SCH (08:30)
[2020-05-05] MEDS: PROSOURCE / PROSTAT (PYXIS) 30 ML UDC PO SCH (10:58)
[2020-05-05] MEDS ORDERED: INFLUENZA VACCINE 2020-21 0.5 ML DISP.SYRIN IM ONE (14:00)
--- NOTE | 2020-05-05 14:54 | NUR ---
RABIES INSPECTOR NOTE patient is medically cleared for discharge, A/O x1, non-verbal, opens eyes to name and touch, moans when she is in pain, able to smile. Skin assessed, photos taken and placed in chart. Patient clean and skin protection measures implemented. Left hip surgical was soiled and replaced with new one. Hendricks catheter noted with clear urine output. DC instructions co-signed with RN. All patient needs met, all due medications given. FLU VACCINE given prior to DC. [facility] Patient left unit [facility] with EMS. Family is aware.
== END 2020-05-05 14:45 | DRG 853 ==
LOC: ER 16:44 → ICU 20:46 → TELE2 04-28 12:45 → TELE 04-28 19:42 → MED 04-30 10:52
PROVIDERS: ADMIT Nurse Practitioner Acute Care; ATTEND Legal Medicine
PROC: 0QS704Z Reposition Left Upper Femur with Internal Fixation Device, Open Approach (ICD-10-PCS; principal; 2020-05-03)
PROC: 0LNK0ZZ Release Left Hip Tendon, Open Approach (ICD-10-PCS; 2020-05-03)
PROC: 0LNR0ZZ Release Left Knee Tendon, Open Approach (ICD-10-PCS; 2020-05-03)
DX: A41.9 Sepsis, unspecified organism (principal); E43 Unspecified severe protein-calorie malnutrition; G93.41 Metabolic encephalopathy; J69.0 Pneumonitis due to inhalation of food and vomit; J96.01 Acute respiratory failure with hypoxia; R65.21 Severe sepsis with septic shock; N17.0 Acute kidney failure with tubular necrosis; M80.052A Age-related osteoporosis with current pathological fracture, left femur, initial encounter for fracture; M80.851A Other osteoporosis with current pathological fracture, right femur, initial encounter for fracture; E87.2 Acidosis; E87.0 Hyperosmolality and hypernatremia; J98.11 Atelectasis; R64 Cachexia; E86.0 Dehydration; Z88.0 Allergy status to penicillin; Z79.899 Other long term (current) drug therapy; F02.80 Dementia in other diseases classified elsewhere, unspecified severity, without behavioral disturbance, psychotic disturbance, mood disturbance, and anxiety; G30.9 Alzheimer's disease, unspecified; E86.1 Hypovolemia; E88.09 Other disorders of plasma-protein metabolism, not elsewhere classified; R91.1 Solitary pulmonary nodule; E03.9 Hypothyroidism, unspecified; E87.6 Hypokalemia; I10 Essential (primary) hypertension; K56.41 Fecal impaction; K80.20 Calculus of gallbladder without cholecystitis without obstruction; M19.90 Unspecified osteoarthritis, unspecified site; M85.80 Other specified disorders of bone density and structure, unspecified site; F09 Unspecified mental disorder due to known physiological condition; T17.990A Other foreign object in respiratory tract, part unspecified in causing asphyxiation, initial encounter; X58.XXXA Exposure to other specified factors, initial encounter; Y92.9 Unspecified place or not applicable; I95.89 Other hypotension; G93.9 Disorder of brain, unspecified
CPT/HCPCS: 36415; 36600; 71045-TC; 73502; 73552; 76536-TC; 76700-TC; 80048-TC; 80053-TC; 80061-TC; 80076-TC; 80202-TC; 81000-TC; 82248-TC; 82550-TC; 82728-TC; 83605-TC; 83615-TC; 83735-TC; 83880; 83935-TC; 84100-TC; 84300-TC; 84439-TC; 84443-TC; 84484-TC; 85025-TC; 85378-TC; 85385-TC; 85652-TC; 85730-TC; 86140-TC; 86850-TC; 87040-TC; 87081-TC; 87086-TC; 88305-TC; 88311-TC; 92526; 92611-TC; 93307-TC; A4217; A6209; A6253; C1776; C9113; C9803-CS; G0378; J0690; J0692; J1100; J1650; J1885; J2270; J2405; J2704; J3010; J3370; J3480; J3490; J7030; J7050; J7060; Q2036; Q9967; U0003-CS